=== PATIENT | female | born 1960 | race Caucasian/White ===

== ENCOUNTER 2017-11-25 06:56 | Inpatient (IN) | payer BC, OTHER ==
[~2017-11-25] VITALS: Ht 160 cm; Wt 122.8 kg
[~2017-11-25 06:56] MED LIST: ALPR0.25 PO; AMPH30TA2 PO; BUPR300T4 PO; BUPR300T49 PO; DIAZ5TAB PO; DULO60CA7 PO; ESCI20TA10 PO; GABA300C10 PO; METO25TA91 PO; MORP30TA PO; OXYC20TA2 PO; SOMA PO; TIZA4TAB PO; TRAM50TA2 PO; TRAZ100T15 PO
[2017-11-25] MEDS ORDERED: LACTATED RINGERS 1,000 ML IV SCH (07:48)
[2017-11-25] MEDS ORDERED: VANCOMYCIN PER PHARMACY MC PRN (08:00)
[2017-11-25] MEDS ORDERED: OxyconTIN ER 20 MG TAB.ER PO ONE (09:00)
[2017-11-25] MEDS ORDERED: ACETAMINOPHEN 500 MG TABLET PO ONE (09:00)
[2017-11-25] MEDS ORDERED: GABAPENTIN 300 MG CAPSULE PO ONE (09:00)
[2017-11-25] MEDS ORDERED: VANCOMYCIN 2,000 MG in SODIUM CHLORIDE 0.9% 500 ML IV ONE (09:30)
[2017-11-25] MEDS ORDERED: MIDAZOLAM 1 MG/ML, 2ML ONE (10:08)
[2017-11-25] MEDS ORDERED: FENTANYL PF 250 MCG/5ML ONE ×2 (10:09→12:45)
[2017-11-25] MEDS ORDERED: KETOROLAC 60 MG/2 ML ONE (10:27)
[2017-11-25] MEDS ORDERED: ROPIvacaine/PF 0.2%, 20 ML ONE (10:28)
[2017-11-25] MEDS ORDERED: VANCOMYCIN 500 MG ONE (10:28)
[2017-11-25] MEDS ORDERED: TRANEXAMIC ACID 100 MG/ML, 10ML ONE (10:28)
[2017-11-25] MEDS ORDERED: EPINEPHRINE 1 MG/ML, 1ML ONE (10:29)
[2017-11-25] MEDS ORDERED: VANCOMYCIN 1,000 MG ONE (10:29)
[2017-11-25] MEDS ORDERED: SODIUM CHLORIDE 0.9% 100 ML ONE (10:29)
[2017-11-25] MEDS ORDERED: CEFAZOLIN 1,000 MG ONE (10:54)
[2017-11-25] MEDS ORDERED: DEXAMETHASONE 4 MG/ML, 1ML ONE (10:54)
[2017-11-25] MEDS ORDERED: ONDANSETRON ODT 8 MG ONE (10:54)
[2017-11-25] MEDS ORDERED: PROPOFOL 10 MG/ML, 20ML ONE (10:54)
[2017-11-25] MEDS ORDERED: LABETALOL 5MG/ML 40ML VIAL ONE (10:54)
[2017-11-25] MEDS ORDERED: SUCCINYLCHOLINE 20 MG/ML, 10ML ONE (10:54)
[2017-11-25] MEDS ORDERED: GLYCOPYRROLATE 0.2MG/1ML, 5ML ONE (10:54)
[2017-11-25] MEDS ORDERED: PROMETHAZINE 25 MG/ML, 1ML IV PRN (13:00)
[2017-11-25] MEDS ORDERED: MEPERIDINE/PF 25MG/0.5ML IVPush PRN (13:00)
[2017-11-25] MEDS ORDERED: PROMETHAZINE 12.5 MG SUPP PR PRN ×2 (13:00→15:00)
[2017-11-25] MEDS ORDERED: HYDROmorphone 1 MG/ML, 1ML IV PRN ×2 (13:00→15:00)
[2017-11-25] MEDS ORDERED: LORazepam 2 MG/ML, 1ML IVPush PRN (13:00)
[2017-11-25] MEDS ORDERED: METOPROLOL 1 MG/ML, 5ML IV PRN (13:00)
[2017-11-25] MEDS ORDERED: ONDANSETRON 2MG/ML, 2ML IVPush PRN (13:00)
[2017-11-25] MEDS ORDERED: hydrALAzine 20 MG/ML, 1ML IV PRN (13:00)
[2017-11-25] MEDS ORDERED: ALBUTEROL SULFATE 2.5 MG/3 ML NPPB PRN (13:00)
[2017-11-25] MEDS ORDERED: FENTANYL PF 100 MCG/2ML IV PRN (13:00)
[2017-11-25] MEDS ORDERED: OXYcodone 5 MG/5 ML ORAL.SOL UDC PO PRN (13:00)
[2017-11-25] MEDS ORDERED: MORPHINE SULFATE 4 MG/ML, 1ML ONE (14:47)
[2017-11-25] MEDS ORDERED: OXYcodone 5 MG/5 ML ORAL.SOL UDC ONE (14:47)
[2017-11-25] MEDS: morphine SULFATE 10 MG/ML, 1ML IV PRN ×2 (14:52→15:22)
[2017-11-25] MEDS ORDERED: MAGNESIUM HYDROXIDE 8%, 30ML UDC PO PRN (15:00)
[2017-11-25] MEDS ORDERED: ACETAMINOPHEN 650 MG/20.3 ML UDC PO PRN (15:00)
[2017-11-25] MEDS ORDERED: SENNA/DOCUSATE TABLET PO PRN (15:00)
[2017-11-25] MEDS: HYDROcodone/APAP 10/325 MG TABLET PO SCH ×2 (15:00→19:38)
[2017-11-25] MEDS ORDERED: BISACODYL 10 MG SUPP PR PRN (15:00)
[2017-11-25] MEDS ORDERED: ONDANSETRON 2MG/ML, 2ML IV PRN (15:00)
[2017-11-25] MEDS ORDERED: ONDANSETRON 4 MG TABLET PO PRN (15:00)
[2017-11-25] MEDS ORDERED: ALUMINUM/MAG/SIMETHICONE 30 ML UDC PO PRN (15:00)
[2017-11-25] MEDS ORDERED: PROMETHAZINE 25 MG/ML, 1ML IM PRN (15:00)
[2017-11-25] MEDS ORDERED: DIPHENHYDRAMINE 50 MG CAPSULE PO PRN (15:00)
[2017-11-25] MEDS ORDERED: HYDROcodone/APAP 10/325 MG TABLET PO PRN (15:00)
[2017-11-25] MEDS ORDERED: ZOLPIDEM 5MG TABLET PO PRN (15:00)
[2017-11-25] MEDS ORDERED: TRANEXAMIC ACID 1,500 MG in SODIUM CHLORIDE 0.9% 100 ML IVPB ONE (15:15)
[2017-11-25] MEDS: TAMSULOSIN 0.4 MG CAP.ER.24H PO SCH (15:15)
[2017-11-25] MEDS ORDERED: morphine SULFATE 10 MG/ML, 1ML ONE (15:17)
[2017-11-25] MEDS ORDERED: DIAZEPAM 5 MG TABLET ONE (15:17)
[2017-11-25] MEDS: DIAZEPAM 5 MG TABLET PO PRN (15:22)
[2017-11-25] MEDS ORDERED: ROPIvacaine/PF 0.2%, 100ML 550 ML (check volume) INJ ONE (15:30)
[2017-11-25] MEDS: KETOROLAC 30 MG/1 ML IV SCH (17:00)
[2017-11-25] MEDS: D5%-0.45% NACL 1,000 ML IV SCH ×2 (17:18→21:12)
[2017-11-25] MEDS: ASPIRIN 81 MG TABLET EC PO SCH (18:28)
[2017-11-25] MEDS: CEFAZOLIN PMX 2GM/50ML 50 ML IVPB SCH (18:47)
[2017-11-25 19:23] VITALS: BP 131/86
[2017-11-25] MEDS: BUPROPION SR 150 MG TABLET PO SCH (19:34)
[2017-11-25] MEDS: DOCUSATE 100 MG CAPSULE PO SCH (19:38)
[2017-11-25] MEDS ORDERED: GABAPENTIN 300 MG CAPSULE PO SCH ×2 (21:00)
[2017-11-25] MEDS: GABAPENTIN 300 MG CAPSULE PO SCH (21:10)
[2017-11-25] MEDS: TRAZODONE 100MG TABLET PO SCH (21:10)
[2017-11-26] MEDS: KETOROLAC 30 MG/1 ML IV SCH ×4 (00:01→17:59)
[2017-11-26] MEDS: HYDROcodone/APAP 10/325 MG TABLET PO SCH ×5 (00:02→12:29)
[2017-11-26 00:18] VITALS: BP 103/56
[2017-11-26] MEDS: CEFAZOLIN PMX 2GM/50ML 50 ML IVPB SCH (03:01)
[2017-11-26 04:20] VITALS: BP 138/70
[2017-11-26] MEDS: ASPIRIN 81 MG TABLET EC PO SCH ×2 (05:48→17:59)
[2017-11-26] MEDS: D5%-0.45% NACL 1,000 ML IV SCH ×3 (05:51→19:13)
[2017-11-26] MEDS ORDERED: DEXAMETHASONE 4 MG/ML, 1ML IVPush SCH (06:00)
[2017-11-26 08:00] VITALS: BP 116/68
[2017-11-26] MEDS: TIZANIDINE 4MG TABLET PO SCH (08:17)
[2017-11-26] MEDS: TAMSULOSIN 0.4 MG CAP.ER.24H PO SCH (08:24)
[2017-11-26] MEDS: DOCUSATE 100 MG CAPSULE PO SCH ×2 (08:25→20:29)
[2017-11-26] MEDS: GABAPENTIN 300 MG CAPSULE PO SCH ×3 (08:25→20:29)
[2017-11-26] MEDS: MULTIVITAMINS/MINERALS TABLET PO SCH (08:26)
[2017-11-26] MEDS: DULOXETINE 30 MG CAPSULE.DR PO SCH (08:26)
[2017-11-26] MEDS: BUPROPION SR 150 MG TABLET PO SCH ×2 (08:26→19:12)
[2017-11-26 13:12] VITALS: BP 101/56
[2017-11-26] MEDS: HYDROcodone/APAP 10/325 MG TABLET PO PRN ×2 (17:02→21:01)
[2017-11-26 19:08] VITALS: BP 130/73
[2017-11-26] MEDS: TRAZODONE 100MG TABLET PO SCH (20:29)
[2017-11-26] MEDS: METOPROLOL SUCCINATE 25 MG TAB.ER.24H PO SCH (20:29)
[2017-11-27] MEDS: KETOROLAC 30 MG/1 ML IV SCH ×2 (00:11→05:02)
[2017-11-27 01:29] VITALS: BP 121/75
[2017-11-27] MEDS ORDERED: KETOROLAC 30 MG/1 ML ONE (03:23)
[2017-11-27] MEDS: ASPIRIN 81 MG TABLET EC PO SCH ×2 (05:01→17:30)
[2017-11-27] MEDS: HYDROcodone/APAP 10/325 MG TABLET PO PRN ×5 (05:01→22:38)
[2017-11-27] MEDS: BUPROPION SR 150 MG TABLET PO SCH ×2 (08:14→21:01)
[2017-11-27] MEDS: DOCUSATE 100 MG CAPSULE PO SCH ×2 (08:14→21:02)
[2017-11-27] MEDS: TAMSULOSIN 0.4 MG CAP.ER.24H PO SCH ×2 (08:15→09:00)
[2017-11-27] MEDS: METOPROLOL SUCCINATE 25 MG TAB.ER.24H PO SCH ×3 (08:15→21:02)
[2017-11-27] MEDS: MULTIVITAMINS/MINERALS TABLET PO SCH (08:15)
[2017-11-27] MEDS: TIZANIDINE 4MG TABLET PO SCH ×2 (08:15→09:00)
[2017-11-27] MEDS: DULOXETINE 30 MG CAPSULE.DR PO SCH (08:15)
[2017-11-27] MEDS: GABAPENTIN 300 MG CAPSULE PO SCH ×3 (08:16→21:02)
[2017-11-27 09:52] VITALS: BP 121/66
[2017-11-27] MEDS: DIAZEPAM 5 MG TABLET PO PRN ×2 (10:47→17:30)
[2017-11-27 13:50] VITALS: BP 116/70
[2017-11-27] MEDS: D5%-0.45% NACL 1,000 ML IV SCH ×2 (14:37→22:37)
[2017-11-27 19:48] VITALS: BP 115/68
[2017-11-27] MEDS: TRAZODONE 100MG TABLET PO SCH (21:02)
[2017-11-28] MEDS: HYDROcodone/APAP 10/325 MG TABLET PO PRN ×3 (03:13→12:39)
[2017-11-28 03:20] VITALS: BP 97/60
[2017-11-28] MEDS: ASPIRIN 81 MG TABLET EC PO SCH (06:01)
[2017-11-28] MEDS: D5%-0.45% NACL 1,000 ML IV SCH ×2 (06:37→13:42)
[2017-11-28 08:00] VITALS: BP 104/60
[2017-11-28] MEDS: DULOXETINE 30 MG CAPSULE.DR PO SCH (08:04)
[2017-11-28] MEDS: MULTIVITAMINS/MINERALS TABLET PO SCH (08:04)
[2017-11-28] MEDS: TAMSULOSIN 0.4 MG CAP.ER.24H PO SCH (08:04)
[2017-11-28] MEDS: BUPROPION SR 150 MG TABLET PO SCH (08:05)
[2017-11-28] MEDS: GABAPENTIN 300 MG CAPSULE PO SCH ×2 (08:05→11:26)
[2017-11-28] MEDS: TIZANIDINE 4MG TABLET PO SCH (08:05)
[2017-11-28] MEDS: DOCUSATE 100 MG CAPSULE PO SCH (08:05)
[2017-11-28 13:44] VITALS: BP 112/67
== END 2017-11-28 16:46 | disposition home or self-care (01) | DRG 467 ==
LOC: ORIP 06:56 → 4NOR 16:25
PROVIDERS: ADMIT Orthopaedic Surgery; ATTEND Orthopaedic Surgery
PROC: 0SRD0JZ Replacement of Left Knee Joint with Synthetic Substitute, Open Approach (ICD-10-PCS; 2017-11-25)
PROC: 3E0T3BZ Introduction of Anesthetic Agent into Peripheral Nerves and Plexi, Percutaneous Approach (ICD-10-PCS; 2017-11-25)
PROC: 0SPD0JZ Removal of Synthetic Substitute from Left Knee Joint, Open Approach (ICD-10-PCS; principal; 2017-11-25 10:30)
DX: T84.033A Mechanical loosening of internal left knee prosthetic joint, initial encounter (principal); Z68.42 Body mass index [BMI] 45.0-49.9, adult; Y83.8 Other surgical procedures as the cause of abnormal reaction of the patient, or of later complication, without mention of misadventure at the time of the procedure; Y92.89 Other specified places as the place of occurrence of the external cause; M79.7 Fibromyalgia; E66.9 Obesity, unspecified; Z96.651 Presence of right artificial knee joint
CPT/HCPCS: 36415; 85014; 85018; C1713; J0171; J0690; J1100; J1170; J1885; J2250; J2704; J2795; J3010; J3370; J3490; Q0162; C1776; J0330; J2270; J7040; J7120

== ENCOUNTER → 2018-04-17 | Outpatient (CLI) | payer BC, OTHER ==
[~2018-04-17] MED LIST changes: +MELA10TA3 PO; +PRAS50CA PO; +PRED5TAB PO; +TRAZ-137 PO; -TRAZ100T15 PO; +[UNRECOGNIZED DRUG - OTHER] PO
[2018-04-17 15:20] LABS: MICROSCOPIC NOT IND
[2018-04-17 15:24] LABS: BASOPHILS # (AUTO) 0.02 x10^3/uL (0-0.1); BASOPHILS % (AUTO) 0 % (0-1); EOSINOPHILS % (AUTO) 0 % (1-7); LYMPHOCYTES # (AUTO) 0.66 x10^3/uL (1-3.4); LYMPHOCYTES % (AUTO) 12 % (22-44); MD NO; MEAN CORPUSCULAR HGB CONC 32.4 g/dL (32.4-35.8); MEAN CORPUSCULAR VOLUME 92.6 fL (80-100); MEAN PLATELET VOLUME 8.3 fL (7.4-10.4); MONOCYTES # (AUTO) 0.07 x10^3/uL (0.2-0.8); MONOCYTES % (AUTO) 1 % (2-9); NEUTROPHILS # (AUTO) 4.99 x10^3/uL (1.8-6.8); NEUTROPHILS % (AUTO) 87 % (42-75); PLATELET COUNT 300 x10^3/uL (130-400); RED BLOOD COUNT 4.32 x10^6/uL (3.82-5.3); RED CELL DISTRIBUTION WIDTH 15.8 % (9.6-15.2)
[2018-04-17 15:28] LABS: ANION GAP 7 mmol/L (5-15); CALCIUM 8.8 mg/dL (8.5-10.1); CHLORIDE 101 mmol/L (98-107)
[2018-04-17 15:30] LABS: CULTURE INDICATED? NO
== END | disposition home or self-care (01) ==
LOC: STAR 14:20
PROVIDERS: ATTEND Orthopaedic Surgery
DX: Z01.818 Encounter for other preprocedural examination (principal); M17.11 Unilateral primary osteoarthritis, right knee; M25.561 Pain in right knee
CPT/HCPCS: 36415; 80048; 81003; 85025; 87081; 93005

== ENCOUNTER 2018-04-29 07:30 | Inpatient (IN) | payer BC, OTHER ==
[~2018-04-29] VITALS: Ht 157.5 cm; Wt 123.0 kg
[2018-05-14] MEDS ORDERED: LACTATED RINGERS 1,000 ML IV SCH (11:26)
[2018-05-14] MEDS ORDERED: VANCOMYCIN PER PHARMACY MC PRN (11:30)
[2018-05-14 11:56] VITALS: BP 135/88
[2018-05-14] MEDS ORDERED: VANCOMYCIN 2,000 MG in SODIUM CHLORIDE 0.9% 500 ML IV ONE (12:00)
[2018-05-14] MEDS ORDERED: GABAPENTIN 300 MG CAPSULE PO ONE (12:30)
[2018-05-14] MEDS ORDERED: ACETAMINOPHEN 500 MG TABLET PO ONE (12:30)
[2018-05-14] MEDS ORDERED: SCOPOLAMINE PATCH, 1.5MG PATCH.TD72 TD ONE (12:30)
[2018-05-14] MEDS ORDERED: KETOROLAC 60 MG/2 ML ONE (12:36)
[2018-05-14] MEDS ORDERED: TRANEXAMIC ACID 100 MG/ML, 10ML ONE (12:36)
[2018-05-14] MEDS ORDERED: EPINEPHRINE 1 MG/ML, 1ML ONE (12:37)
[2018-05-14] MEDS ORDERED: ROPIvacaine/PF 0.2%, 20 ML ONE (12:37)
[2018-05-14] MEDS ORDERED: ONDANSETRON 4 MG TABLET PO PRN (14:00)
[2018-05-14] MEDS ORDERED: ACETAMINOPHEN 650 MG/20.3 ML UDC PO PRN (14:00)
[2018-05-14] MEDS ORDERED: ONDANSETRON 2MG/ML, 2ML IV PRN (14:00)
[2018-05-14] MEDS ORDERED: BISACODYL 10 MG SUPP PR PRN (14:00)
[2018-05-14] MEDS ORDERED: LORazepam 1MG TABLET PO PRN (14:00)
[2018-05-14] MEDS ORDERED: MAGNESIUM HYDROXIDE 8%, 30ML UDC PO PRN (14:00)
[2018-05-14] MEDS ORDERED: DIPHENHYDRAMINE 25 MG CAPSULE PO PRN (14:00)
[2018-05-14] MEDS ORDERED: SENNA/DOCUSATE TABLET PO PRN (14:00)
[2018-05-14] MEDS ORDERED: ALUMINUM/MAG/SIMETHICONE 30 ML UDC PO PRN (14:00)
[2018-05-14] MEDS ORDERED: PROMETHAZINE 25 MG/ML, 1ML IM PRN (14:00)
[2018-05-14] MEDS ORDERED: PROMETHAZINE 12.5 MG SUPP PR PRN (14:00)
[2018-05-14] MEDS ORDERED: HYDROmorphone 1 MG/ML, 1ML IV PRN (14:00)
[2018-05-14] MEDS ORDERED: HYDROcodone/APAP 5/325 TABLET PO PRN (14:00)
[2018-05-14] MEDS ORDERED: PROPOFOL 10 MG/ML, 20ML ONE (14:33)
[2018-05-14] MEDS ORDERED: ONDANSETRON 2MG/ML, 2ML ONE (14:33)
[2018-05-14] MEDS ORDERED: DEXAMETHASONE 4 MG/ML, 1ML ONE (14:33)
[2018-05-14] MEDS ORDERED: ROCURONIUM 10 MG/ML,10ML ONE (14:33)
[2018-05-14] MEDS ORDERED: SUCCINYLCHOLINE 20 MG/ML, 10ML ONE (14:33)
[2018-05-14] MEDS ORDERED: CEFAZOLIN 1,000 MG ONE (14:33)
[2018-05-14] MEDS ORDERED: ROPIvacaine/PF 0.2%, 100ML 500 ML in BAG 1 EACH INJ ONE (16:00)
[2018-05-14] MEDS ORDERED: PROMETHAZINE 25 MG/ML, 1ML IV PRN (16:30)
[2018-05-14] MEDS ORDERED: METOCLOPRAMIDE 5 MG/ML, 2ML IV PRN (16:30)
[2018-05-14] MEDS ORDERED: ONDANSETRON 2MG/ML, 2ML IVPush PRN (16:30)
[2018-05-14] MEDS ORDERED: ALBUTEROL SULFATE 2.5 MG/3 ML NPPB PRN (16:30)
[2018-05-14] MEDS ORDERED: hydrALAzine 20 MG/ML, 1ML IV PRN (16:30)
[2018-05-14] MEDS ORDERED: LABETALOL 5MG/ML, 20ML IV PRN (16:30)
[2018-05-14] MEDS ORDERED: OXYcodone 5 MG/5 ML ORAL.SOL UDC PO PRN (16:30)
[2018-05-14] MEDS ORDERED: MEPERIDINE/PF 25MG/0.5ML IVPush PRN (16:30)
[2018-05-14] MEDS ORDERED: KETOROLAC 30 MG/1 ML IV PRN (16:30)
[2018-05-14] MEDS ORDERED: HYDROmorphone 2 MG/ML, 1ML ONE (16:32)
[2018-05-14] MEDS: HYDROmorphone 1 MG/ML, 1ML IV PRN ×4 (16:32→17:01)
[2018-05-14] MEDS ORDERED: FENTANYL PF 100 MCG/2ML ONE (16:32)
[2018-05-14] MEDS ORDERED: OXYcodone 5 MG/5 ML ORAL.SOL UDC ONE (16:32)
[2018-05-14] MEDS ORDERED: VANCOMYCIN 1,000 MG ONE (16:35)
[2018-05-14] MEDS: FENTANYL PF 100 MCG/2ML IV PRN ×2 (16:36→16:54)
[2018-05-14] MEDS ORDERED: TRANEXAMIC ACID 1,000 MG in SODIUM CHLORIDE 0.9% 100 ML IVPB ONE (16:47)
[2018-05-14] MEDS ORDERED: DIAZEPAM 5 MG TABLET ONE (16:55)
[2018-05-14] MEDS: DIAZEPAM 5 MG TABLET PO PRN ×2 (16:56→22:17)
[2018-05-14] MEDS ORDERED: MELATONIN 5 MG TABLET PO PRN (18:30)
[2018-05-14 19:24] VITALS: BP 126/75
[2018-05-14] MEDS: D5%-0.45% NACL 1,000 ML IV SCH ×2 (19:34→23:36)
[2018-05-14] MEDS: ASPIRIN 81 MG TABLET EC PO SCH (19:34)
[2018-05-14] MEDS: GABAPENTIN 300 MG CAPSULE PO SCH (20:41)
[2018-05-14] MEDS: DOCUSATE 100 MG CAPSULE PO SCH (20:42)
[2018-05-14] MEDS: OXYcodone IR 5MG TABLET PO PRN ×2 (20:42→21:22)
[2018-05-14] MEDS ORDERED: METOPROLOL SUCCINATE 25 MG TAB.ER.24H PO SCH (21:00)
[2018-05-14] MEDS ORDERED: TRAZODONE 100MG TABLET PO SCH (21:00)
[2018-05-14] MEDS ORDERED: DULOXETINE 30 MG CAPSULE.DR PO SCH (21:00)
[2018-05-14] MEDS: CEFAZOLIN PMX 2GM/50ML 50 ML IVPB SCH (22:02)
[2018-05-15 00:45] VITALS: BP 100/51
[2018-05-15] MEDS: OXYcodone IR 5MG TABLET PO PRN ×4 (01:33→14:33)
[2018-05-15 04:00] VITALS: BP 110/58
[2018-05-15] MEDS: DIAZEPAM 5 MG TABLET PO PRN ×3 (04:02→12:35)
[2018-05-15] MEDS: D5%-0.45% NACL 1,000 ML IV SCH ×2 (04:12→12:35)
[2018-05-15] MEDS ORDERED: DEXAMETHASONE 4 MG/ML, 1ML IVPush SCH (06:00)
[2018-05-15] MEDS: ASPIRIN 81 MG TABLET EC PO SCH (06:02)
[2018-05-15] MEDS: CEFAZOLIN PMX 2GM/50ML 50 ML IVPB SCH (06:02)
[2018-05-15] MEDS: GABAPENTIN 300 MG CAPSULE PO SCH (08:31)
[2018-05-15] MEDS: DOCUSATE 100 MG CAPSULE PO SCH (08:33)
[2018-05-15] MEDS ORDERED: METOPROLOL SUCCINATE 25 MG TAB.ER.24H PO SCH (09:00)
[2018-05-15] MEDS ORDERED: DULOXETINE 30 MG CAPSULE.DR PO SCH (09:00)
[2018-05-15] MEDS ORDERED: MULTIVITAMINS/MINERALS TABLET PO SCH (09:00)
[2018-05-15 09:43] VITALS: BP 106/63
[2018-05-15] MEDS ORDERED: OXYC5CAP2 PO (13:54)
[2018-05-15] MEDS ORDERED: ASPI-496 PO (13:55)
[2018-05-15] MEDS ORDERED: KETOROLAC 30 MG/1 ML IV SCH (14:00)
[2018-05-15 14:19] VITALS: BP 133/70
[2018-05-16] MEDS ORDERED: BUPR100T8 PO (18:16)
== END 2018-05-15 15:00 | disposition home or self-care (01) | DRG 467 ==
LOC: EDSTATUS 07:30 → ORIP 05-14 11:18 → 4NOR 05-14 17:46 → DCLOUNGE 05-15 14:55
PROVIDERS: ADMIT Orthopaedic Surgery; ATTEND Orthopaedic Surgery
PROC: 0SRC0J9 Replacement of Right Knee Joint with Synthetic Substitute, Cemented, Open Approach (ICD-10-PCS; 2018-05-14)
PROC: 0SBC0ZZ Excision of Right Knee Joint, Open Approach (ICD-10-PCS; 2018-05-14)
PROC: 3E0T3BZ Introduction of Anesthetic Agent into Peripheral Nerves and Plexi, Percutaneous Approach (ICD-10-PCS; 2018-05-14)
PROC: 0SPC0JZ Removal of Synthetic Substitute from Right Knee Joint, Open Approach (ICD-10-PCS; principal; 2018-05-14 14:15)
DX: T84.032A Mechanical loosening of internal right knee prosthetic joint, initial encounter (principal); Z68.42 Body mass index [BMI] 45.0-49.9, adult; T84.84XA Pain due to internal orthopedic prosthetic devices, implants and grafts, initial encounter; Y83.1 Surgical operation with implant of artificial internal device as the cause of abnormal reaction of the patient, or of later complication, without mention of misadventure at the time of the procedure; M23.51 Chronic instability of knee, right knee; E66.9 Obesity, unspecified; M79.7 Fibromyalgia; Z98.891 History of uterine scar from previous surgery
CPT/HCPCS: 36415; 85014; 85018; C1713; G0378; J0171; J0690; J1100; J1170; J1885; J2405; J2704; J2795; J3010; J3370; C1776; J0330; J7040; J7120

== ENCOUNTER 2018-05-16 08:09 | Emergency (ER) | payer OTHER ==
[~2018-05-16] VITALS: Ht 160 cm; Wt 110.0 kg
[~2018-05-16 08:09] MED LIST changes: +ASPI-496 PO; +OXYC5CAP2 PO
[2018-05-16] MEDS ORDERED: ONDANSETRON 2MG/ML, 2ML IVPush ONE (08:30)
[2018-05-16] MEDS ORDERED: SODIUM CHLORIDE FLUSH 10ML SYR IVF ONE (08:30)
[2018-05-16] MEDS ORDERED: HYDROmorphone 2 MG/ML, 1ML ONE ×2 (08:42→09:28)
[2018-05-16] MEDS ORDERED: ONDANSETRON 2MG/ML, 2ML ONE (08:45)
[2018-05-16] MEDS: HYDROmorphone 1 MG/ML, 1ML IVPush PRN ×2 (08:49→09:32)
[2018-05-16 11:55] VITALS: BP 127/60
[2018-05-16] MEDS ORDERED: BUPR100T8 PO (18:16)
== END 2018-05-16 11:55 | disposition home or self-care (01) ==
LOC: ED 09:07 → UNDOADMIN 09:09 → EDIP 09:09 → UNDODISIN 11:55 → ED 11:55
DX: G89.18 Other acute postprocedural pain (principal); M25.561 Pain in right knee
CPT/HCPCS: 96374; 96375; 96376; 99285; J1170; J2405

== ENCOUNTER 2018-05-16 14:50 | Inpatient (IN) | payer OTHER ==
[~2018-05-16] VITALS: Ht 160 cm; Wt 118.3 kg
[2018-05-16] MEDS ORDERED: SODIUM CHLORIDE FLUSH 10ML SYR IVF ONE (16:30)
[2018-05-16] MEDS ORDERED: FENTANYL PF 100 MCG/2ML ONE ×2 (16:38→17:23)
[2018-05-16] MEDS: FENTANYL PF 100 MCG/2ML IVPush PRN ×4 (16:59→17:57)
[2018-05-16] MEDS ORDERED: SODIUM CHLORIDE FLUSH 10ML SYR IVF PRN (17:00)
[2018-05-16 17:17] LABS: BASOPHILS # (AUTO) 0.06 x10^3/uL (0-0.1); BASOPHILS % (AUTO) 1 % (0-1); EOSINOPHILS # (AUTO) 0.13 x10^3/uL (0-0.4); EOSINOPHILS % (AUTO) 2 % (1-7); LYMPHOCYTES # (AUTO) 1.76 x10^3/uL (1-3.4); LYMPHOCYTES % (AUTO) 24 % (22-44); MD NO; MEAN CORPUSCULAR HEMOGLOBIN 31.5 pg (27.0-34.8); MEAN CORPUSCULAR HGB CONC 33.3 g/dL (32.4-35.8); MEAN CORPUSCULAR VOLUME 94.6 fL (80-100); MEAN PLATELET VOLUME 9.4 fL (7.4-10.4); MONOCYTES # (AUTO) 0.46 x10^3/uL (0.2-0.8); MONOCYTES % (AUTO) 6 % (2-9); NEUTROPHILS # (AUTO) 5.09 x10^3/uL (1.8-6.8); NEUTROPHILS % (AUTO) 68 % (42-75); PLATELET COUNT 251 x10^3/uL (130-400); RED BLOOD COUNT 3.85 x10^6/uL (3.82-5.3); RED CELL DISTRIBUTION WIDTH 15.5 % (9.6-15.2)
[2018-05-16] MEDS ORDERED: ONDANSETRON 2MG/ML, 2ML IVPush PRN (17:30)
[2018-05-16] MEDS ORDERED: BISACODYL 10 MG SUPP PR PRN (17:30)
[2018-05-16] MEDS ORDERED: POLYETHYLENE GLYCOL 17 GM PACKET PO PRN (17:30)
[2018-05-16] MEDS ORDERED: LABETALOL 5MG/ML, 20ML IVPush PRN (17:30)
[2018-05-16] MEDS ORDERED: ACETAMINOPHEN 325 MG TABLET PO PRN (17:30)
[2018-05-16] MEDS ORDERED: PROMETHAZINE 25 MG/ML, 1ML IM PRN (17:30)
[2018-05-16] MEDS ORDERED: GABAPENTIN 300 MG CAPSULE PO SCH (17:30)
[2018-05-16] MEDS ORDERED: OXYcodone IR 5MG TABLET PO PRN (17:30)
[2018-05-16] MEDS ORDERED: hydrALAzine 20 MG/ML, 1ML IVPush PRN (17:30)
[2018-05-16] MEDS ORDERED: ONDANSETRON ODT 4 MG PO PRN (17:30)
[2018-05-16 17:53] LABS: HEMOGLOBIN A1C 5.4 % (4.2-6.3)
[2018-05-16 18:11] LABS: FREE T4 (FREE THYROXINE) 1.29 ng/dL (0.76-1.46); THYROID STIMULATING HORMONE 1.11 mIU/L (0.358-3.740)
[2018-05-16] MEDS ORDERED: BUPR100T8 PO (18:16)
[2018-05-16] MEDS: HEPARIN 5,000 UNITS/ML, 1ML SQ SCH (18:26)
[2018-05-16] MEDS: CYCLOBENZAPRINE 10 MG TABLET PO PRN (18:27)
[2018-05-16] MEDS: OXYcodone IR 5MG TABLET PO PRN (18:27)
[2018-05-16] MEDS: SODIUM CHLORIDE 0.9% 1,000 ML IV SCH (18:29)
[2018-05-16 19:08] LABS: ALBUMIN 3.4 g/dL (3.4-5.0); ANION GAP 7 mmol/L (5-15); CALCIUM 8.7 mg/dL (8.5-10.1); CHLORIDE 105 mmol/L (98-107)
[2018-05-16 19:34] VITALS: BP 130/81
[2018-05-16] MEDS: morphine SULFATE 10 MG/ML, 1ML IVPush PRN (19:46)
[2018-05-16 20:27] LABS: MICROSCOPIC NOT IND
[2018-05-16 20:42] LABS: CULTURE INDICATED? NO
[2018-05-16] MEDS: ASPIRIN 81 MG TABLET EC PO SCH (20:54)
[2018-05-16] MEDS: TRAZODONE 100MG TABLET PO SCH (20:54)
[2018-05-16] MEDS: METOPROLOL SUCCINATE 25 MG TAB.ER.24H PO SCH (20:54)
[2018-05-16] MEDS: GABAPENTIN 300 MG CAPSULE PO SCH (20:55)
[2018-05-16] MEDS: DULOXETINE 30 MG CAPSULE.DR PO SCH (20:55)
[2018-05-16] MEDS: MELATONIN 5 MG TABLET PO SCH (20:55)
[2018-05-17 01:10] VITALS: BP 136/77
[2018-05-17] MEDS ORDERED: HYDROmorphone 1 MG/ML, 1ML IV ONE (01:30)
[2018-05-17] MEDS ORDERED: HYDROmorphone 2 MG/ML, 1ML IV ONE (01:30)
[2018-05-17] MEDS ORDERED: VANCOMYCIN PMX 1GM/200ML 200 ML IV ONE (01:30)
[2018-05-17] MEDS: HEPARIN 5,000 UNITS/ML, 1ML SQ SCH ×3 (02:14→18:02)
[2018-05-17] MEDS: OXYcodone IR 5MG TABLET PO PRN ×4 (04:31→20:27)
[2018-05-17] MEDS: SODIUM CHLORIDE 0.9% 1,000 ML IV SCH (04:31)
[2018-05-17 05:45] LABS: BASOPHILS # (AUTO) 0.04 x10^3/uL (0-0.1); BASOPHILS % (AUTO) 1 % (0-1); EOSINOPHILS # (AUTO) 0.09 x10^3/uL (0-0.4); EOSINOPHILS % (AUTO) 1 % (1-7); LYMPHOCYTES # (AUTO) 1.71 x10^3/uL (1-3.4); LYMPHOCYTES % (AUTO) 21 % (22-44); MD NO; MEAN CORPUSCULAR HEMOGLOBIN 31.6 pg (27.0-34.8); MEAN CORPUSCULAR HGB CONC 33.3 g/dL (32.4-35.8); MEAN CORPUSCULAR VOLUME 94.7 fL (80-100); MEAN PLATELET VOLUME 9.4 fL (7.4-10.4); MONOCYTES # (AUTO) 0.55 x10^3/uL (0.2-0.8); MONOCYTES % (AUTO) 7 % (2-9); NEUTROPHILS # (AUTO) 5.95 x10^3/uL (1.8-6.8); NEUTROPHILS % (AUTO) 71 % (42-75); PLATELET COUNT 241 x10^3/uL (130-400); RED BLOOD COUNT 3.57 x10^6/uL (3.82-5.3); RED CELL DISTRIBUTION WIDTH 15.4 % (9.6-15.2)
[2018-05-17 05:54] LABS: CHLORIDE 102 mmol/L (98-107)
[2018-05-17 06:05] LABS: ALANINE AMINOTRANSFERASE 14 U/L (12-78); ALBUMIN 2.8 g/dL (3.4-5.0); ALKALINE PHOSPHATASE 70 U/L (45-117); ANION GAP 10 mmol/L (5-15); BILIRUBIN,TOTAL 0.4 mg/dL (0.2-1.0); CALCIUM 8.1 mg/dL (8.5-10.1); CHOL/HDL RATIO 1.9; CHOLESTEROL, TOTAL 142 mg/dL (140-239); CREATININE 0.68 mg/dL (0.55-1.02); HDL CHOL % 54 % (28-40); HDL CHOLESTEROL (DIRECT) 76 mg/dL (40-60); LDL CHOLESTEROL,CALCULATED 45 mg/dL (54-169); LDL/HDL RATIO 0.6 (0.5-3.0); TOTAL PROTEIN 6.2 g/dL (6.4-8.2); TRIGLYCERIDES 106 mg/dL (50-200); VLDL CHOLESTEROL 21 mg/dL (0-25)
[2018-05-17 07:15] VITALS: BP 128/83
[2018-05-17] MEDS: SENNA/DOCUSATE TABLET PO SCH (08:01)
[2018-05-17] MEDS: ASPIRIN 81 MG TABLET EC PO SCH ×2 (08:01→20:57)
[2018-05-17] MEDS: CYCLOBENZAPRINE 10 MG TABLET PO PRN (08:01)
[2018-05-17] MEDS ORDERED: MELATONIN 5 MG TABLET PO SCH (09:00)
[2018-05-17] MEDS ORDERED: DULOXETINE 30 MG CAPSULE.DR PO SCH (09:00)
[2018-05-17] MEDS ORDERED: METOPROLOL SUCCINATE 25 MG TAB.ER.24H PO SCH (09:00)
[2018-05-17] MEDS: morphine SULFATE 10 MG/ML, 1ML IVPush PRN (11:06)
[2018-05-17 12:15] LABS: HCT (SEDRATE) 35.9 % (34.6-47.8)
[2018-05-17] MEDS: KETOROLAC 30 MG/1 ML IVPush SCH ×3 (12:21→23:24)
[2018-05-17] MEDS: OxyconTIN ER 10 MG TAB.ER PO SCH (12:36)
[2018-05-17 14:00] VITALS: BP 119/63
[2018-05-17 18:55] VITALS: BP 109/65
[2018-05-17] MEDS: TRAZODONE 100MG TABLET PO SCH (20:57)
[2018-05-17] MEDS: GABAPENTIN 300 MG CAPSULE PO SCH (20:57)
[2018-05-17] MEDS: DULOXETINE 30 MG CAPSULE.DR PO SCH (20:57)
[2018-05-17] MEDS: MELATONIN 5 MG TABLET PO SCH (20:57)
[2018-05-17] MEDS: METOPROLOL SUCCINATE 25 MG TAB.ER.24H PO SCH (20:58)
[2018-05-17] MEDS ORDERED: BUPROPION 100 MG TABLET PO SCH (21:00)
[2018-05-18] MEDS: OxyconTIN ER 10 MG TAB.ER PO SCH ×2 (00:49→12:34)
[2018-05-18 02:00] VITALS: BP 100/65
[2018-05-18] MEDS: HEPARIN 5,000 UNITS/ML, 1ML SQ SCH ×2 (02:24→10:45)
[2018-05-18] MEDS: KETOROLAC 30 MG/1 ML IVPush SCH ×2 (05:29→11:37)
[2018-05-18 07:32] VITALS: BP 107/56
[2018-05-18] MEDS: OXYcodone IR 5MG TABLET PO PRN ×2 (08:33→12:34)
[2018-05-18] MEDS: SENNA/DOCUSATE TABLET PO SCH (08:33)
[2018-05-18] MEDS: ASPIRIN 81 MG TABLET EC PO SCH (08:33)
[2018-05-18] MEDS ORDERED: OXYC-307 PO (10:42)
[2018-05-18] MEDS ORDERED: IBUP-1221 PO (10:44)
[2018-05-18 14:34] VITALS: BP 95/64
== END 2018-05-18 14:30 | disposition home or self-care (01) | DRG 948 ==
LOC: ED 16:38 → EDIP 16:39 → ED 17:17 → 4NOR 17:50
PROVIDERS: ADMIT Internal Medicine; ATTEND Internal Medicine
DX: G89.18 Other acute postprocedural pain (principal); E44.0 Moderate protein-calorie malnutrition; Z68.42 Body mass index [BMI] 45.0-49.9, adult; Z96.651 Presence of right artificial knee joint; M25.561 Pain in right knee; D64.9 Anemia, unspecified; M47.812 Spondylosis without myelopathy or radiculopathy, cervical region; M79.7 Fibromyalgia; Z87.891 Personal history of nicotine dependence; Z98.891 History of uterine scar from previous surgery
CPT/HCPCS: 36415; 80048; 80053; 80061; 81003; 82040; 83036; 83735; 84439; 84443; 85025; 85651; 86140; 87040; 99285; G0378; J1170; J1644; J1885; J3010; J3370; J2270; J7030

== ENCOUNTER 2018-11-27 17:13 | Emergency (ER) | payer OTHER ==
[~2018-11-27] VITALS: Ht 160 cm; Wt 113.6 kg
[~2018-11-27 17:13] MED LIST changes: +BUPR100T8 PO; +IBUP-1221 PO; +OXYC-307 PO
[2018-11-27] MEDS ORDERED: PLEASE ENTER HEIGHT AND WEIGHT MC SCH (17:30)
[2018-11-27] MEDS ORDERED: SODIUM CHLORIDE FLUSH 10ML SYR IVF ONE ×2 (17:30→18:30)
--- NOTE | 2018-11-27 17:42 | NUR ---
PT TO ED WITH LLQ ABD PAIN RAIDIATING TO BACK AT TIMES, SOME ASSOCIATED NAUSEA. PT PLACED ON MONITOR, FRIEND AT BEDSIDE. PT PLACED ON MONITOR. CALL LIGHT WITHIN REACH
[2018-11-27 17:43] LABS: BASOPHILS # (AUTO) 0.02 x10^3/uL (0-0.1); BASOPHILS % (AUTO) 0 % (0-1); EOSINOPHILS # (AUTO) 0.03 x10^3/uL (0-0.4); EOSINOPHILS % (AUTO) 0 % (1-7); LYMPHOCYTES # (AUTO) 3.54 x10^3/uL (1-3.4); LYMPHOCYTES % (AUTO) 35 % (22-44); MD NO; MEAN CORPUSCULAR HEMOGLOBIN 31.9 pg (27.0-34.8); MEAN CORPUSCULAR HGB CONC 33.5 g/dL (32.4-35.8); MEAN CORPUSCULAR VOLUME 95.2 fL (80-100); MEAN PLATELET VOLUME 8.1 fL (7.4-10.4); MONOCYTES # (AUTO) 0.68 x10^3/uL (0.2-0.8); MONOCYTES % (AUTO) 7 % (2-9); NEUTROPHILS # (AUTO) 5.79 x10^3/uL (1.8-6.8); NEUTROPHILS % (AUTO) 58 % (42-75); PLATELET COUNT 310 x10^3/uL (130-400); RED BLOOD COUNT 4.32 x10^6/uL (3.82-5.3); RED CELL DISTRIBUTION WIDTH 14.4 % (9.6-15.2)
[2018-11-27 17:51] LABS: ALANINE AMINOTRANSFERASE 29 U/L (12-78); ALBUMIN 4.2 g/dL (3.4-5.0); ANION GAP 5 mmol/L (5-15); CALCIUM 8.9 mg/dL (8.5-10.1); CHLORIDE 107 mmol/L (98-107); CREATININE 0.99 mg/dL (0.55-1.02)
[2018-11-27 17:53] LABS: ALKALINE PHOSPHATASE 77 U/L (45-117); BILIRUBIN,TOTAL 0.2 mg/dL (0.2-1.0); TOTAL PROTEIN 7.5 g/dL (6.4-8.2)
[2018-11-27] MEDS ORDERED: HYDROmorphone 2 MG/ML, 1ML ONE (18:13)
[2018-11-27] MEDS ORDERED: ONDANSETRON 2MG/ML, 2ML ONE (18:13)
[2018-11-27 18:28] LABS: MICROSCOPIC AUTO
[2018-11-27] MEDS ORDERED: ONDANSETRON 2MG/ML, 2ML IVPush ONE (18:30)
[2018-11-27] MEDS ORDERED: HYDROmorphone 2 MG/ML, 1ML IVPush PRN (18:30)
[2018-11-27 18:33] LABS: CULTURE INDICATED? YES
--- NOTE | 2018-11-27 18:41 | NUR ---
PT TO CT
[2018-11-27] MEDS ORDERED: OMNIPAQUE 350 MG/ML, 100ML BOTTLE ONE (18:53)
[2018-11-27 20:27] VITALS: BP 123/79
== END 2018-11-27 20:29 | disposition home or self-care (01) ==
LOC: ED 18:43
DX: R10.32 Left lower quadrant pain (principal); Z87.891 Personal history of nicotine dependence
CPT/HCPCS: 36415; 74177; 80053; 81001; 83605; 83690; 85025; 87040; 87086; 96374; 96375; 99284; J1170; J2405; Q9967